=== PATIENT | female | born 1955 | race Two or more races ===

== ENCOUNTER 2017-05-08 13:28 | Emergency (ER) | payer MEDICARE, OTHER ==
[~2017-05-08] VITALS: Ht 154.9 cm; Wt 111.6 kg
[~2017-05-08 13:28] MED LIST: CLIN1CAP4 PO; CLON1TAB3 PO; GABA800T97 PO; HYD2T PO; LEVO-28 PO; PRA1C PO; RISP4TAB53 PO; SENN8.6T15 PO
[2017-05-08 14:18] LABS: Basophils # (auto) 0 uL; Basophils % (auto) 0.5 % (0.0-2.0); CONDITION Y; Eosinophils # (auto) 0.1 uL; Eosinophils % (auto) 0.8 % (0.0-7.0); Hematocrit 44.8 % (36.0-46.0); Hemoglobin 15.1 g/dL (12.2-16.2); Lymphocytes # (auto) 1.6 uL; Lymphocytes % (auto) 20.8 % (10.0-50.0); Mean Corpuscular Hemoglobin 28.5 pg (28.0-32.0); Mean Corpuscular Hgb Conc. 33.7 g/dL (32.0-36.0); Mean Corpuscular Volume 84.6 fL (80.0-100.0); Mean Platelet Volume 7.6 fL (7.4-10.4); Monocytes # (auto) 0.3 uL; Monocytes % (auto) 4.5 % (0.0-12.0); Neutrophils # (auto) 5.7 uL; Neutrophils % (auto) 73.4 % (37.0-80.0); Platelet Count (auto) 272 10^3/uL (140-450); Red Cell Distribution Width 14.4 % (11.6-16.0); White Blood Cell 7.7 10^3/uL (4.4-10.8)
[2017-05-08 14:44] LABS: Albumin 3.7 g/dL (3.4-5.0); Alkaline Phosphatase 95 U/L (45-117); Anion Gap 8 (5-15); Aspartate Aminotransferase 21 U/L (15-37); BUN/Creatinine Ratio 26.7; Bilirubin, Total 0.6 mg/dL (0.2-1.0); Blood Urea Nitrogen 20 mg/dL (7-18); Calcium 8.8 mg/dL (8.5-10.1); Carbon Dioxide 25 mmol/L (21-32); Chloride 103 mmol/L (98-107); GFR African American 101 mL/min; GFR Non-African American 83 mL/min; Glucose 88 mg/dL (74-106); Magnesium 2.3 mg/dL (1.6-2.6); Potassium 3.9 mmol/L (3.5-5.1); Sodium 136 mmol/L (136-145)
[2017-05-08 17:31] VITALS: BP 144/94
== END 2017-05-08 17:11 | disposition home or self-care (01) ==
LOC: ER 13:41
DX: K80.20 Calculus of gallbladder without cholecystitis without obstruction (principal); R53.1 Weakness; E78.5 Hyperlipidemia, unspecified; Z86.711 Personal history of pulmonary embolism; Z88.6 Allergy status to analgesic agent; Z79.899 Other long term (current) drug therapy
CPT/HCPCS: 36415; 70450; 74176; 80053; 83735; 84484; 85025; 93005

== ENCOUNTER 2022-04-15 10:00 | Inpatient (IN) | payer MEDICARE, OTHER ==
[~2022-04-15] VITALS: Ht 165.1 cm; Wt 132.7 kg
[~2022-04-15 10:00] MED LIST changes: -CLIN1CAP4 PO; +CLIN300C8 PO; +CLON-853 PO; -CLON1TAB3 PO; -HYD2T PO; +HYDR2TAB3 PO; +SENN1TAB14 PO; -SENN8.6T15 PO
[2022-04-15] MEDS ORDERED: AZITHROMYCIN 500MG/ 250ML 250 ML IV ONE (10:45)
[2022-04-15] MEDS ORDERED: cefTRIAXone 1GM/50ML D5W 50 ML IV ONE (10:45)
[2022-04-15 11:05] LABS: Eosinophils # (auto) 0 10 ^3/uL (0-0.8); Mean Corpuscular Hemoglobin 26.1 pg (28.0-32.0); Monocytes # (auto) 0.7 10 ^3/uL (0-1.3); Neutrophils # (auto) 8.4 10 ^3/uL (1.6-8.6); White Blood Cell 10.4 10^3/uL (4.4-10.8)
[2022-04-15 11:09] LABS: Basophils # (auto) 0.1 10 ^3/uL (0-0.2); Basophils % (auto) 0.7 % (0.0-2.0); Eosinophils % (auto) 0.2 % (0.0-7.0); Hematocrit 40.7 % (36.0-46.0); Hemoglobin 13.1 g/dL (12.2-16.2); Lymphocytes # (auto) 1.3 10 ^3/uL (0.4-5.4); Lymphocytes % (auto) 12.1 % (10.0-50.0); Mean Corpuscular Hgb Conc. 32.1 g/dL (32.0-36.0); Mean Corpuscular Volume 81.2 fL (80.0-100.0); Monocytes % (auto) 6.7 % (0.0-12.0); Neutrophils % (auto) 80.3 % (37.0-80.0); Red Blood Cells 5.01 10^6/uL (4.0-5.20); Red Cell Distribution Width 17.1 % (11.8-14.3)
[2022-04-15 11:31] LABS: Albumin 3.2 g/dL (3.4-5.0); Calcium 8.4 mg/dL (8.5-10.1); Potassium 4.2 mmol/L (3.5-5.1)
[2022-04-15 11:34] LABS: BUN/Creatinine Ratio 15.2; Bilirubin, Total 0.7 mg/dL (0.2-1.0); Total Protein 6.8 g/dL (6.4-8.2)
[2022-04-15 16:00] LABS: Urine Bacteria NONE SEEN /hpf (None Seen); Urine Blood Negative /uL (Negative); Urine Hyaline Cast MANY /lpf (0 - 2); Urine Specific Gravity 1.023 (1.001-1.035); Urine WBC 1 /hpf (0 - 5)
[2022-04-15] MEDS ORDERED: IPRATROPIUM BROM 0.5 MG/2.5ML INH SOL NEB PRN (17:30)
[2022-04-15] MEDS ORDERED: VANCOMYCIN PER PHARMACY 0 MG IV SCH (17:30)
[2022-04-15] MEDS ORDERED: ALBUTEROL SULF 2.5 MG/0.5ML(0.5%) NEB SOLN NEB PRN (17:30)
[2022-04-15] MEDS ORDERED: NITROGLYCERIN 0.4 MG SL TAB SL PRN (17:45)
[2022-04-15] MEDS ORDERED: MORPHINE SULFATE INJ 2 MG/ml SYRG IV PRN (17:45)
[2022-04-15] MEDS ORDERED: SODIUM CHLORIDE 0.9% 1,000 ML IV ONE (17:45)
[2022-04-15] MEDS: IPRATROPIUM BROM 0.5 MG/2.5ML INH SOL NEB SCH (17:51)
[2022-04-15] MEDS: ALBUTEROL SULF 2.5 MG/0.5ML(0.5%) NEB SOLN NEB SCH (17:51)
[2022-04-15] MEDS ORDERED: VANCOMYCIN 1GM/250ML 250 ML IV ONE (18:00)
[2022-04-15] MEDS ORDERED: CLON0.5T10 PO (18:10)
[2022-04-15 19:01] LABS: Cholesterol 167 mg/dL (< 200); HDL Cholesterol 45 mg/dL (40-59); LDL Cholesterol 114 mg/dL (< 100); Triglycerides 107 mg/dL (< 150)
[2022-04-15] MEDS ORDERED: clonazePAM 0.5 MG TAB PO SCH (22:00)
[2022-04-15] MEDS ORDERED: LISI-716 PO (22:02)
[2022-04-15] MEDS ORDERED: CYCL-611 PO (22:02)
[2022-04-15] MEDS ORDERED: MELO1TAB56 PO (22:02)
[2022-04-15] MEDS ORDERED: FURO40TA4 PO (22:02)
[2022-04-15] MEDS ORDERED: ROSU1TAB13 PO (22:02)
[2022-04-15] MEDS ORDERED: HYDR25TA5 PO (22:03)
[2022-04-15 22:13] VITALS: BP 101/53
[2022-04-15] MEDS: GABAPENTIN 400 MG CAP PO SCH (22:26)
[2022-04-15] MEDS: clonazePAM 0.5 MG TAB PO SCH (22:27)
[2022-04-16 03:52] VITALS: BP 101/53
[2022-04-16 04:57] LABS: Eosinophils # (auto) 0.1 10 ^3/uL (0-0.8); Lymphocytes # (auto) 1.3 10 ^3/uL (0.4-5.4); Monocytes # (auto) 0.6 10 ^3/uL (0-1.3)
[2022-04-16 05:00] VITALS: BP 106/55
[2022-04-16 05:00] LABS: Basophils # (auto) 0 10 ^3/uL (0-0.2); Basophils % (auto) 0.6 % (0.0-2.0); Eosinophils % (auto) 1.7 % (0.0-7.0); Hematocrit 38.7 % (36.0-46.0); Hemoglobin 12.9 g/dL (12.2-16.2); Lymphocytes % (auto) 19.2 % (10.0-50.0); Mean Corpuscular Hemoglobin 27.1 pg (28.0-32.0); Mean Corpuscular Hgb Conc. 33.4 g/dL (32.0-36.0); Mean Corpuscular Volume 81.3 fL (80.0-100.0); Monocytes % (auto) 8.4 % (0.0-12.0); Neutrophils # (auto) 4.7 10 ^3/uL (1.6-8.6); Neutrophils % (auto) 70.1 % (37.0-80.0); Nucleated Red Blood Cells % 0.1 %; Red Blood Cells 4.76 10^6/uL (4.0-5.20); White Blood Cell 6.7 10^3/uL (4.4-10.8)
[2022-04-16 05:59] LABS: Albumin 2.9 g/dL (3.4-5.0); Calcium 8.2 mg/dL (8.5-10.1)
[2022-04-16 06:01] LABS: BUN/Creatinine Ratio 24.6
[2022-04-16 06:04] LABS: Bilirubin, Total 0.7 mg/dL (0.2-1.0); Total Protein 6.2 g/dL (6.4-8.2)
[2022-04-16] MEDS: IPRATROPIUM BROM 0.5 MG/2.5ML INH SOL NEB SCH ×3 (06:33→18:43)
[2022-04-16] MEDS: ALBUTEROL SULF 2.5 MG/0.5ML(0.5%) NEB SOLN NEB SCH ×3 (06:33→18:43)
[2022-04-16] MEDS: GABAPENTIN 400 MG CAP PO SCH ×2 (09:14→20:58)
[2022-04-16] MEDS: ENOXAPARIN SOD 40 MG/0.4 ML SYRINGE SC SCH (09:15)
[2022-04-16] MEDS: clonazePAM 0.5 MG TAB PO SCH ×2 (09:15→20:57)
[2022-04-16] MEDS ORDERED: risperiDONE 1 MG TAB PO SCH (10:00)
[2022-04-16] MEDS ORDERED: VANCOMYCIN 1GM/250ML 250 ML IV SCH (10:00)
[2022-04-16 10:18] VITALS: BP 115/73
[2022-04-16 15:17] VITALS: BP 128/65
[2022-04-16] MEDS: traMADol HCL 50 MG TAB PO PRN ×2 (15:25→20:58)
[2022-04-16 18:10] VITALS: BP 104/42
[2022-04-16] MEDS: ATORVASTATIN 20 MG TAB PO SCH (20:58)
[2022-04-16 22:00] VITALS: BP 127/62
[2022-04-17] MEDS: traMADol HCL 50 MG TAB PO PRN ×2 (02:58→10:54)
[2022-04-17 05:00] VITALS: BP 131/75
[2022-04-17 05:41] LABS: Basophils # (auto) 0 10 ^3/uL (0-0.2); Eosinophils # (auto) 0.1 10 ^3/uL (0-0.8); Lymphocytes # (auto) 1.1 10 ^3/uL (0.4-5.4); Neutrophils # (auto) 4.2 10 ^3/uL (1.6-8.6); White Blood Cell 5.9 10^3/uL (4.4-10.8)
[2022-04-17 05:48] LABS: Basophils % (auto) 0.6 % (0.0-2.0); Eosinophils % (auto) 1.6 % (0.0-7.0); Hematocrit 42.1 % (36.0-46.0); Hemoglobin 13.6 g/dL (12.2-16.2); Lymphocytes % (auto) 18.5 % (10.0-50.0); Mean Corpuscular Hemoglobin 26.2 pg (28.0-32.0); Mean Corpuscular Hgb Conc. 32.3 g/dL (32.0-36.0); Mean Corpuscular Volume 81.2 fL (80.0-100.0); Monocytes # (auto) 0.5 10 ^3/uL (0-1.3); Monocytes % (auto) 8.2 % (0.0-12.0); Neutrophils % (auto) 71.1 % (37.0-80.0); Nucleated Red Blood Cells % 0.1 %; Red Blood Cells 5.18 10^6/uL (4.0-5.20)
[2022-04-17 06:30] LABS: BUN/Creatinine Ratio 22.7; Calcium 9.2 mg/dL (8.5-10.1); Phosphorus 2.5 mg/dL (2.5-4.90); Potassium 3.8 mmol/L (3.5-5.1)
[2022-04-17 06:33] LABS: Uric Acid 6.5 mg/dL (2.6-6.0)
[2022-04-17] MEDS: ALBUTEROL SULF 2.5 MG/0.5ML(0.5%) NEB SOLN NEB SCH ×3 (07:30→18:50)
[2022-04-17] MEDS: IPRATROPIUM BROM 0.5 MG/2.5ML INH SOL NEB SCH ×3 (07:30→18:50)
[2022-04-17] MEDS: GABAPENTIN 400 MG CAP PO SCH ×2 (08:33→21:05)
[2022-04-17 09:00] VITALS: BP 121/65
[2022-04-17] MEDS: clonazePAM 0.5 MG TAB PO SCH ×2 (09:25→21:04)
[2022-04-17] MEDS: ENOXAPARIN SOD 40 MG/0.4 ML SYRINGE SC SCH (09:25)
[2022-04-17 13:00] VITALS: BP 138/77
[2022-04-17] MEDS: MORPHINE SULFATE INJ 2 MG/ml SYRG IV PRN ×2 (16:54→21:43)
[2022-04-17 17:03] VITALS: BP 118/68
[2022-04-17] MEDS: ATORVASTATIN 20 MG TAB PO SCH (21:05)
[2022-04-17 22:00] VITALS: BP 113/55
[2022-04-18] MEDS: MORPHINE SULFATE INJ 2 MG/ml SYRG IV PRN ×3 (02:15→13:35)
[2022-04-18 05:00] VITALS: BP 138/74
[2022-04-18] MEDS: ALBUTEROL SULF 2.5 MG/0.5ML(0.5%) NEB SOLN NEB SCH ×2 (06:14→12:00)
[2022-04-18] MEDS: IPRATROPIUM BROM 0.5 MG/2.5ML INH SOL NEB SCH ×2 (06:14→12:00)
[2022-04-18] MEDS: clonazePAM 0.5 MG TAB PO SCH (08:47)
[2022-04-18] MEDS: GABAPENTIN 400 MG CAP PO SCH (08:47)
[2022-04-18] MEDS: ENOXAPARIN SOD 40 MG/0.4 ML SYRINGE SC SCH (08:47)
[2022-04-18 08:57] VITALS: BP 120/65
[2022-04-18 11:09] VITALS: BP 120/65
[2022-04-18 13:00] VITALS: BP 109/60
[2022-04-18 14:05] VITALS: BP 109/60
== END 2022-04-18 15:08 | disposition home or self-care (01) | DRG 291 ==
LOC: EDUNIT# 10:00 → EDBD 10:00 → ER 10:06 → TELE 17:41 → TELE-CENTR 20:41
PROVIDERS: ADMIT Registered Nurse; ATTEND Internal Medicine
DX: I13.0 Hypertensive heart and chronic kidney disease with heart failure and stage 1 through stage 4 chronic kidney disease, or unspecified chronic kidney disease (principal); I50.31 Acute diastolic (congestive) heart failure; J96.01 Acute respiratory failure with hypoxia; N17.0 Acute kidney failure with tubular necrosis; L03.115 Cellulitis of right lower limb; J44.0 Chronic obstructive pulmonary disease with (acute) lower respiratory infection; E46 Unspecified protein-calorie malnutrition; J98.11 Atelectasis; Z68.42 Body mass index [BMI] 45.0-49.9, adult; J44.1 Chronic obstructive pulmonary disease with (acute) exacerbation; L03.116 Cellulitis of left lower limb; I95.9 Hypotension, unspecified; M54.9 Dorsalgia, unspecified; G62.9 Polyneuropathy, unspecified; Z20.822 Contact with and (suspected) exposure to COVID-19; E66.01 Morbid (severe) obesity due to excess calories; E78.5 Hyperlipidemia, unspecified; G89.4 Chronic pain syndrome; G47.33 Obstructive sleep apnea (adult) (pediatric); F11.10 Opioid abuse, uncomplicated; N18.32 Chronic kidney disease, stage 3b; Z88.1 Allergy status to other antibiotic agents; Z88.5 Allergy status to narcotic agent; Z82.49 Family history of ischemic heart disease and other diseases of the circulatory system; Z79.899 Other long term (current) drug therapy; Z83.3 Family history of diabetes mellitus; Z86.711 Personal history of pulmonary embolism
CPT/HCPCS: 36415; 36600; 71045; 78582; 80048; 80053; 80061; 80202; 81001; 82805; 83036; 83605; 83880; 84100; 84443; 84484; 84550; 85025; 85379; 87040; 93005; 93306; 93970; 94640; 96365; 96367; 96372; 97163; 99291; G0378; J0696

== ENCOUNTER 2023-01-13 10:20 | Inpatient (IN) | payer MEDICARE, OTHER ==
[~2023-01-13] VITALS: Ht 304.8 cm; Wt 127.7 kg
[~2023-01-13 10:20] MED LIST changes: -CLON-853 PO; +CLON0.5T10 PO; +CYCL-611 PO; +FURO40TA4 PO; +HYDR25TA5 PO; +LISI-716 PO; +MELO1TAB56 PO; -RISP4TAB53 PO; +ROSU1TAB13 PO
[2023-01-13 10:49] LABS: Basophils # (auto) 0.1 10 ^3/uL (0-0.2); Basophils % (auto) 0.7 % (0.0-2.0); Lymphocytes # (auto) 1.2 10 ^3/uL (0.4-5.4); Mean Corpuscular Volume 81.4 fL (80.0-100.0); Monocytes # (auto) 0.5 10 ^3/uL (0-1.3)
[2023-01-13 10:51] LABS: Eosinophils # (auto) 0.1 10 ^3/uL (0-0.8); Eosinophils % (auto) 0.8 % (0.0-7.0); Hematocrit 47.1 % (36.0-46.0); Hemoglobin 15.2 g/dL (12.2-16.2); Lymphocytes % (auto) 15.1 % (10.0-50.0); Mean Corpuscular Hemoglobin 26.2 pg (28.0-32.0); Mean Corpuscular Hgb Conc. 32.2 g/dL (32.0-36.0); Monocytes % (auto) 6.5 % (0.0-12.0); Neutrophils # (auto) 5.9 10 ^3/uL (1.6-8.6); Neutrophils % (auto) 76.9 % (37.0-80.0); Nucleated Red Blood Cells % 0.2 %; Red Blood Cells 5.79 10^6/uL (4.0-5.20); Red Cell Distribution Width 16.2 % (11.8-14.3); White Blood Cell 7.7 10^3/uL (4.4-10.8)
[2023-01-13 11:22] LABS: Alanine Aminotransferase 36 U/L (13-56); Albumin 3.4 g/dL (3.4-5.0); Alkaline Phosphatase 117 U/L (45-117); Anion Gap 9 (5-15); Aspartate Aminotransferase 81 U/L (15-37); BUN/Creatinine Ratio 25.8 (10.0-20.0); Bilirubin, Total 0.7 mg/dL (0.2-1.0); Blood Urea Nitrogen 23 mg/dL (7-18); Calcium 8.5 mg/dL (8.5-10.1); Carbon Dioxide 18 mmol/L (21-32); Chloride 107 mmol/L (98-107); GFR African American 81 mL/min; GFR Non-African American 67 mL/min; Glucose 117 mg/dL (74-106); Potassium 4.5 mmol/L (3.5-5.1); Sodium 134 mmol/L (136-145); Total Protein 6.9 g/dL (6.4-8.2)
[2023-01-13 12:50] LABS: INR 0.97 (0.9-1.15); Partial Thromboplastin Time 28.7 sec (24.6-33.4)
[2023-01-13] MEDS ORDERED: ENOXAPARIN SOD 40 MG/0.4 ML SYRINGE SC SCH (17:45)
[2023-01-13] MEDS ORDERED: MORPHINE SULFATE INJ 2 MG/ml SYRG IV PRN (17:45)
[2023-01-13] MEDS ORDERED: NITROGLYCERIN 0.4 MG SL TAB SL PRN (17:45)
[2023-01-13] MEDS ORDERED: ACETAMINOPHEN 325 MG TAB PO PRN (17:45)
[2023-01-13] MEDS ORDERED: FUROSEMIDE 20 MG/2 ML VIAL IV ONE (18:00)
[2023-01-13] MEDS ORDERED: PANTOPRAZOLE 40 MG TAB PO ONE (18:15)
[2023-01-13] MEDS ORDERED: IOHEXOL 350 MG/ML 100ML IJ ONE (19:58)
[2023-01-13] MEDS: SENNA 8.6 MG TAB PO SCH (22:00)
[2023-01-13] MEDS: HYDROcodone-ACET 5/325MG TAB PO PRN (23:55)
[2023-01-13] MEDS: ENOXAPARIN SOD 40 MG/0.4 ML SYRINGE SC SCH (23:55)
[2023-01-13] MEDS: ATORVASTATIN 20 MG TAB PO SCH (23:55)
[2023-01-13] MEDS: GABAPENTIN 400 MG CAP PO SCH (23:56)
[2023-01-14] VITALS (25 sets, daily range): BP systolic 78–147; BP diastolic 41–80
[2023-01-14] MEDS: PRAZOSIN HCL 1 MG CAP PO SCH ×2 (00:07→21:43)
[2023-01-14 04:13] LABS: Red Cell Distribution Width 16.6 % (11.8-14.3)
[2023-01-14 04:17] LABS: Basophils # (auto) 0 10 ^3/uL (0-0.2); Basophils % (auto) 0.4 % (0.0-2.0); Eosinophils # (auto) 0 10 ^3/uL (0-0.8); Eosinophils % (auto) 0.5 % (0.0-7.0); Hematocrit 44.2 % (36.0-46.0); Hemoglobin 14.6 g/dL (12.2-16.2); Lymphocytes # (auto) 1.9 10 ^3/uL (0.4-5.4); Lymphocytes % (auto) 23.1 % (10.0-50.0); Mean Corpuscular Hemoglobin 26.4 pg (28.0-32.0); Mean Corpuscular Hgb Conc. 33.1 g/dL (32.0-36.0); Monocytes # (auto) 0.7 10 ^3/uL (0-1.3); Monocytes % (auto) 8.4 % (0.0-12.0); Neutrophils # (auto) 5.4 10 ^3/uL (1.6-8.6); Neutrophils % (auto) 67.6 % (37.0-80.0); Nucleated Red Blood Cells % 0.1 %; Red Blood Cells 5.53 10^6/uL (4.0-5.20)
[2023-01-14 04:26] LABS: Albumin 3.4 g/dL (3.4-5.0); Calcium 9.1 mg/dL (8.5-10.1); Potassium 3.7 mmol/L (3.5-5.1)
[2023-01-14] MEDS ORDERED: SODIUM CHLORIDE 0.9% 500 ML IV ONE (04:30)
[2023-01-14 04:32] LABS: BUN/Creatinine Ratio 21.2 (10.0-20.0); Bilirubin, Total 0.8 mg/dL (0.2-1.0); Total Protein 7.2 g/dL (6.4-8.2)
[2023-01-14] MEDS ORDERED: MIDODRINE HCL 10 MG TAB PO ONE (05:00)
[2023-01-14] MEDS ORDERED: NOREPINEPHRINE 8 MG/250ML KIT 250 ML IV ONE (05:00)
[2023-01-14] MEDS: NOREPINEPHRINE 8 MG/250ML KIT 250 ML IV SCH (05:10)
[2023-01-14] MEDS: HYDROcodone-ACET 5/325MG TAB PO PRN (09:12)
[2023-01-14] MEDS: GABAPENTIN 400 MG CAP PO SCH ×3 (09:12→21:43)
[2023-01-14] MEDS ORDERED: ASPirin 81 mg TAB PO SCH (10:00)
[2023-01-14] MEDS: SENNA 8.6 MG TAB PO SCH ×2 (10:00→21:42)
[2023-01-14] MEDS: FUROSEMIDE 20 MG/2 ML VIAL IV SCH (10:00)
[2023-01-14] MEDS: LISINOPRIL 10 MG TAB PO SCH (10:00)
[2023-01-14] MEDS: PANTOPRAZOLE 40 MG TAB PO SCH (11:11)
[2023-01-14] MEDS: ENOXAPARIN SOD 40 MG/0.4 ML SYRINGE SC SCH ×2 (11:11→21:42)
[2023-01-14 11:18] LABS: Urine Bacteria NONE SEEN /hpf (None Seen); Urine Blood Negative /uL (Negative); Urine Specific Gravity 1.033 (1.001-1.035); Urine WBC 2 /hpf (0 - 5)
[2023-01-14] MEDS: ATORVASTATIN 20 MG TAB PO SCH (21:42)
[2023-01-15] VITALS (30 sets, daily range): BP systolic 95–163; BP diastolic 54–69
[2023-01-15] MEDS: NOREPINEPHRINE 8 MG/250ML KIT 250 ML IV SCH (02:03)
[2023-01-15] MEDS: GABAPENTIN 400 MG CAP PO SCH ×3 (05:52→23:56)
[2023-01-15] MEDS: IPRATROPIUM BROM 0.5 MG/2.5ML INH SOL NEB PRN ×3 (07:04→22:58)
[2023-01-15] MEDS: ALBUTEROL SULF 2.5 MG/0.5ML(0.5%) NEB SOLN NEB PRN ×3 (07:04→22:58)
[2023-01-15] MEDS: SENNA 8.6 MG TAB PO SCH ×2 (09:38→21:43)
[2023-01-15] MEDS: LISINOPRIL 10 MG TAB PO SCH (09:38)
[2023-01-15] MEDS: PANTOPRAZOLE 40 MG TAB PO SCH (09:38)
[2023-01-15] MEDS: FUROSEMIDE 20 MG/2 ML VIAL IV SCH ×2 (09:38→18:00)
[2023-01-15] MEDS: ENOXAPARIN SOD 40 MG/0.4 ML SYRINGE SC SCH ×2 (09:38→21:42)
[2023-01-15] MEDS: HYDROcodone-ACET 5/325MG TAB PO PRN (14:11)
[2023-01-15] MEDS: ATORVASTATIN 20 MG TAB PO SCH (21:42)
[2023-01-16] VITALS (7 sets, daily range): BP systolic 93–120; BP diastolic 50–77
[2023-01-16] MEDS: FUROSEMIDE 20 MG/2 ML VIAL IV SCH (06:00)
[2023-01-16] MEDS: GABAPENTIN 400 MG CAP PO SCH ×3 (06:22→21:17)
[2023-01-16] MEDS: PANTOPRAZOLE 40 MG TAB PO SCH (09:54)
[2023-01-16] MEDS: SENNA 8.6 MG TAB PO SCH ×2 (09:55→21:20)
[2023-01-16] MEDS: ENOXAPARIN SOD 40 MG/0.4 ML SYRINGE SC SCH ×2 (09:55→21:17)
[2023-01-16] MEDS: LISINOPRIL 10 MG TAB PO SCH (12:00)
[2023-01-16] MEDS ORDERED: REGADENOSON 0.4 MG/5 ML SYRG IV ONE ×2 (13:44→13:45)
[2023-01-16] MEDS: HYDROcodone-ACET 5/325MG TAB PO PRN (18:18)
[2023-01-16] MEDS: ALBUTEROL SULF 2.5 MG/0.5ML(0.5%) NEB SOLN NEB PRN (20:31)
[2023-01-16] MEDS: IPRATROPIUM BROM 0.5 MG/2.5ML INH SOL NEB PRN (20:31)
[2023-01-16] MEDS: ATORVASTATIN 20 MG TAB PO SCH (21:17)
[2023-01-17] MEDS: HYDROcodone-ACET 5/325MG TAB PO PRN ×2 (01:32→09:49)
[2023-01-17 05:00] VITALS: BP 96/72
[2023-01-17] MEDS: GABAPENTIN 400 MG CAP PO SCH ×3 (05:27→21:36)
[2023-01-17 09:00] VITALS: BP 135/77
[2023-01-17] MEDS: ENOXAPARIN SOD 40 MG/0.4 ML SYRINGE SC SCH ×2 (09:48→21:36)
[2023-01-17] MEDS: PANTOPRAZOLE 40 MG TAB PO SCH (09:48)
[2023-01-17] MEDS: SENNA 8.6 MG TAB PO SCH ×2 (09:49→21:37)
[2023-01-17] MEDS: FUROSEMIDE 20 MG/2 ML VIAL IV SCH ×2 (11:17→18:27)
[2023-01-17 12:00] VITALS: BP 121/77
[2023-01-17 17:00] VITALS: BP 119/65
[2023-01-17] MEDS: IPRATROPIUM BROM 0.5 MG/2.5ML INH SOL NEB PRN (18:42)
[2023-01-17] MEDS: ALBUTEROL SULF 2.5 MG/0.5ML(0.5%) NEB SOLN NEB PRN (18:42)
[2023-01-17] MEDS: PRAZOSIN HCL 1 MG CAP PO SCH ×2 (21:20→22:00)
[2023-01-17] MEDS: ATORVASTATIN 20 MG TAB PO SCH (21:36)
[2023-01-17 22:00] VITALS: BP 116/66
[2023-01-18 05:00] VITALS: BP 113/69
[2023-01-18] MEDS: FUROSEMIDE 20 MG/2 ML VIAL IV SCH ×2 (05:51→19:48)
[2023-01-18] MEDS: GABAPENTIN 400 MG CAP PO SCH ×3 (05:52→21:59)
[2023-01-18 09:00] VITALS: BP 114/68
[2023-01-18] MEDS: PANTOPRAZOLE 40 MG TAB PO SCH (09:13)
[2023-01-18] MEDS: SENNA 8.6 MG TAB PO SCH ×2 (09:13→21:59)
[2023-01-18] MEDS: ENOXAPARIN SOD 40 MG/0.4 ML SYRINGE SC SCH ×2 (09:14→22:00)
[2023-01-18 13:00] VITALS: BP 119/75
[2023-01-18 17:00] VITALS: BP 135/64
[2023-01-18] MEDS: ATORVASTATIN 20 MG TAB PO SCH (21:59)
[2023-01-18 22:00] VITALS: BP 120/75
[2023-01-18] MEDS: PRAZOSIN HCL 1 MG CAP PO SCH (22:00)
[2023-01-18] MEDS: ALBUTEROL SULF 2.5 MG/0.5ML(0.5%) NEB SOLN NEB PRN (22:56)
[2023-01-18] MEDS: IPRATROPIUM BROM 0.5 MG/2.5ML INH SOL NEB PRN (22:56)
[2023-01-19 05:00] VITALS: BP 101/59
[2023-01-19] MEDS: FUROSEMIDE 20 MG/2 ML VIAL IV SCH ×2 (06:00→17:47)
[2023-01-19] MEDS: GABAPENTIN 400 MG CAP PO SCH ×3 (06:19→21:17)
[2023-01-19 08:43] VITALS: BP 112/65
[2023-01-19] MEDS: PANTOPRAZOLE 40 MG TAB PO SCH (08:58)
[2023-01-19] MEDS: SENNA 8.6 MG TAB PO SCH ×2 (08:58→21:17)
[2023-01-19] MEDS: ENOXAPARIN SOD 40 MG/0.4 ML SYRINGE SC SCH ×2 (08:59→21:18)
[2023-01-19] MEDS: MORPHINE SULFATE INJ 2 MG/ml SYRG IV PRN ×3 (08:59→23:08)
[2023-01-19 13:00] VITALS: BP 120/71
[2023-01-19 16:44] VITALS: BP 125/69
[2023-01-19] MEDS: ALBUTEROL SULF 2.5 MG/0.5ML(0.5%) NEB SOLN NEB PRN (20:38)
[2023-01-19] MEDS: IPRATROPIUM BROM 0.5 MG/2.5ML INH SOL NEB PRN (20:38)
[2023-01-19] MEDS: ATORVASTATIN 20 MG TAB PO SCH (21:17)
[2023-01-19] MEDS: PRAZOSIN HCL 1 MG CAP PO SCH (21:20)
[2023-01-19 22:00] VITALS: BP 113/74
[2023-01-19 22:36] VITALS: BP 113/74
[2023-01-20] MEDS: MORPHINE SULFATE INJ 2 MG/ml SYRG IV PRN (04:27)
[2023-01-20 05:00] VITALS: BP 100/62
[2023-01-20 05:56] LABS: Basophils # (auto) 0.1 10 ^3/uL (0-0.2); Eosinophils # (auto) 0.1 10 ^3/uL (0-0.8); Lymphocytes # (auto) 1.9 10 ^3/uL (0.4-5.4); Lymphocytes % (auto) 24.6 % (10.0-50.0); Monocytes # (auto) 0.6 10 ^3/uL (0-1.3); Nucleated Red Blood Cells % 0.1 %; Red Cell Distribution Width 16.3 % (11.8-14.3)
[2023-01-20 05:59] LABS: Basophils % (auto) 0.7 % (0.0-2.0); Eosinophils % (auto) 1.6 % (0.0-7.0); Hematocrit 42.8 % (36.0-46.0); Hemoglobin 14.3 g/dL (12.2-16.2); Mean Corpuscular Hemoglobin 26.7 pg (28.0-32.0); Mean Corpuscular Hgb Conc. 33.4 g/dL (32.0-36.0); Mean Corpuscular Volume 79.9 fL (80.0-100.0); Monocytes % (auto) 8.2 % (0.0-12.0); Neutrophils % (auto) 64.9 % (37.0-80.0); Red Blood Cells 5.36 10^6/uL (4.0-5.20); White Blood Cell 7.7 10^3/uL (4.4-10.8)
[2023-01-20 06:05] LABS: Potassium 3.6 mmol/L (3.5-5.1)
[2023-01-20 06:11] LABS: Albumin 3.4 g/dL (3.4-5.0); BUN/Creatinine Ratio 18.1 (10.0-20.0); Bilirubin, Total 0.6 mg/dL (0.2-1.0); Calcium 8.9 mg/dL (8.5-10.1)
[2023-01-20] MEDS: GABAPENTIN 400 MG CAP PO SCH ×2 (06:34→15:41)
[2023-01-20] MEDS: FUROSEMIDE 20 MG/2 ML VIAL IV SCH (06:36)
[2023-01-20 08:50] VITALS: BP 124/74
[2023-01-20] MEDS: SENNA 8.6 MG TAB PO SCH (10:52)
[2023-01-20] MEDS: ENOXAPARIN SOD 40 MG/0.4 ML SYRINGE SC SCH (10:52)
[2023-01-20 14:37] VITALS: BP 119/73
[2023-01-20 17:05] VITALS: BP 133/93
== END 2023-01-20 17:15 | disposition home health service (06) | DRG 291 ==
LOC: ER 10:20 → TELE 17:47 → TELE-WESTW 01-15 21:33
PROVIDERS: ADMIT Nurse Practitioner Family; ATTEND Family Medicine
PROC: 5A09357 Assistance with Respiratory Ventilation, Less than 24 Consecutive Hours, Continuous Positive Airway Pressure (ICD-10-PCS; principal; 2023-01-14)
PROC: 05H933Z Insertion of Infusion Device into Right Brachial Vein, Percutaneous Approach (ICD-10-PCS; 2023-01-14)
PROC: B54MZZA Ultrasonography of Right Upper Extremity Veins, Guidance (ICD-10-PCS; 2023-01-14)
PROC: 5A09357 Assistance with Respiratory Ventilation, Less than 24 Consecutive Hours, Continuous Positive Airway Pressure (ICD-10-PCS; 2023-01-15)
PROC: 5A09357 Assistance with Respiratory Ventilation, Less than 24 Consecutive Hours, Continuous Positive Airway Pressure (ICD-10-PCS; 2023-01-18)
DX: I11.0 Hypertensive heart disease with heart failure (principal); I50.33 Acute on chronic diastolic (congestive) heart failure; J44.1 Chronic obstructive pulmonary disease with (acute) exacerbation; J96.11 Chronic respiratory failure with hypoxia; Z68.42 Body mass index [BMI] 45.0-49.9, adult; G47.30 Sleep apnea, unspecified; G89.29 Other chronic pain; Z20.822 Contact with and (suspected) exposure to COVID-19; E78.00 Pure hypercholesterolemia, unspecified; Z96.653 Presence of artificial knee joint, bilateral; Z60.8 Other problems related to social environment; I95.9 Hypotension, unspecified; G56.01 Carpal tunnel syndrome, right upper limb; R29.6 Repeated falls; E66.01 Morbid (severe) obesity due to excess calories; Z99.81 Dependence on supplemental oxygen; Z91.048 Other nonmedicinal substance allergy status; Z88.5 Allergy status to narcotic agent; Z86.711 Personal history of pulmonary embolism; I25.2 Old myocardial infarction; Z82.49 Family history of ischemic heart disease and other diseases of the circulatory system; Z83.3 Family history of diabetes mellitus
CPT/HCPCS: 36415; 71045; 71275; 78452; 80053; 80061; 81001; 83036; 83880; 84484; 85025; 85379; 85610; 85730; 87426; 93005; 93017; 93306; 93970; 94640; 94660; 96360; 97110; 97116; 97163; 97530; G0378

== ENCOUNTER 2023-01-21 08:52 | Inpatient (IN) | payer MEDICARE, OTHER ==
[~2023-01-21] VITALS: Ht 152.4 cm; Wt 133.4 kg
[~2023-01-21 08:52] MED LIST changes: +CLIN300C70 PO; -CLIN300C8 PO; -CLON0.5T10 PO; +CLON0.5T4 PO; -LEVO-28 PO; +LEVO500T91 PO; -LISI-716 PO; +LISI10TA34 PO; +MELO-335 PO; -MELO1TAB56 PO; +ROSU10TA64 PO; -ROSU1TAB13 PO
[2023-01-21] MEDS ORDERED: SODIUM CHLORIDE 0.9% 1,000 ML IV ONE (09:15)
[2023-01-21 10:31] LABS: Eosinophils # (auto) 0 10 ^3/uL (0-0.8); Mean Corpuscular Hemoglobin 26.6 pg (28.0-32.0); Monocytes # (auto) 0.5 10 ^3/uL (0-1.3); White Blood Cell 18.2 10^3/uL (4.4-10.8)
[2023-01-21 10:32] LABS: Basophils # (auto) 0.1 10 ^3/uL (0-0.2); Basophils % (auto) 0.3 % (0.0-2.0); Hematocrit 47.7 % (36.0-46.0); Hemoglobin 15.8 g/dL (12.2-16.2); Lymphocytes # (auto) 0.7 10 ^3/uL (0.4-5.4); Lymphocytes % (auto) 3.8 % (10.0-50.0); Mean Corpuscular Hgb Conc. 33.1 g/dL (32.0-36.0); Mean Corpuscular Volume 80.5 fL (80.0-100.0); Monocytes % (auto) 2.5 % (0.0-12.0); Neutrophils % (auto) 93.4 % (37.0-80.0); Nucleated Red Blood Cells % 0.3 %; Red Blood Cells 5.92 10^6/uL (4.0-5.20); Red Cell Distribution Width 16.5 % (11.8-14.3)
[2023-01-21 10:44] LABS: INR 0.98 (0.9-1.15); Partial Thromboplastin Time 27.3 sec (24.6-33.4)
[2023-01-21] MEDS ORDERED: cefTRIAXone 1GM/50ML D5W 50 ML IV ONE (11:45)
[2023-01-21] MEDS ORDERED: SODIUM CHLORIDE 0.9% 3,800 ML IV ONE (11:45)
[2023-01-21] MEDS ORDERED: VANCOMYCIN 1GM/250ML 250 ML IV ONE (11:45)
[2023-01-21 12:11] LABS: Lactic Acid w/Reflex 2.8 mmol/L (0.4-2.0)
[2023-01-21 12:30] LABS: Albumin 3.7 g/dL (3.4-5.0); Calcium 8.5 mg/dL (8.5-10.1); Magnesium 2.3 mg/dL (1.6-2.6); Potassium 4.5 mmol/L (3.5-5.1)
[2023-01-21 12:32] LABS: Urine Bacteria FEW /hpf (None Seen); Urine Blood TRACE /uL (Negative); Urine Hyaline Cast FEW /lpf (0 - 2); Urine Mucus FEW (None Seen); Urine WBC 10 /hpf (0 - 5)
[2023-01-21 12:33] LABS: BUN/Creatinine Ratio 12.8 (10.0-20.0); Bilirubin, Total 0.6 mg/dL (0.2-1.0); Total Protein 8.1 g/dL (6.4-8.2)
[2023-01-21] MEDS ORDERED: ONDANSETRON HCL 4 MG/2 ML VIAL IV PRN (14:30)
[2023-01-21] MEDS ORDERED: DEXTROSE (50%) 50ML SYRG IV PRN (14:30)
[2023-01-21] MEDS ORDERED: DOCUSATE SOD 100 MG CAP PO PRN (14:30)
[2023-01-21] MEDS: IPRATROPIUM BROM 0.5 MG/2.5ML INH SOL NEB PRN ×2 (16:10→22:29)
[2023-01-21] MEDS: ALBUTEROL SULF 2.5 MG/0.5ML(0.5%) NEB SOLN NEB PRN ×2 (16:10→22:29)
[2023-01-21 16:32] VITALS: BP 95/50
[2023-01-21] MEDS: InsuLIN REG 1unit/0.01ml Soln (100units/ml) SC SCH ×2 (17:00→22:00)
[2023-01-21] MEDS: ACCU-CHEK COMFORT CURVE STRIP VI SCH ×2 (17:00→22:00)
[2023-01-21 17:09] LABS: Creatinine, Urine 180 mg/dL (30.0-125.0); Sodium Urine < 5 mmol/L (40-220)
[2023-01-21] MEDS: MORPHINE SULFATE INJ 2 MG/ml SYRG IV PRN (20:09)
[2023-01-21] MEDS: NOREPINEPHRINE 8 MG/250ML KIT 250 ML IV SCH (22:17)
[2023-01-22] VITALS (60 sets, daily range): BP systolic 99–146; BP diastolic 40–77
[2023-01-22] MEDS: ATORVASTATIN 20 MG TAB PO SCH ×2 (00:37→21:29)
[2023-01-22] MEDS: MORPHINE SULFATE INJ 2 MG/ml SYRG IV PRN ×5 (01:04→21:29)
[2023-01-22 05:01] LABS: Basophils # (auto) 0 10 ^3/uL (0-0.2); Eosinophils # (auto) 0.1 10 ^3/uL (0-0.8); Mean Corpuscular Hemoglobin 26.8 pg (28.0-32.0)
[2023-01-22 05:03] LABS: Basophils % (auto) 0.4 % (0.0-2.0); Eosinophils % (auto) 0.4 % (0.0-7.0); Hematocrit 40.8 % (36.0-46.0); Hemoglobin 13.5 g/dL (12.2-16.2); Lymphocytes # (auto) 1.2 10 ^3/uL (0.4-5.4); Mean Corpuscular Hgb Conc. 33.1 g/dL (32.0-36.0); Monocytes # (auto) 0.9 10 ^3/uL (0-1.3); Monocytes % (auto) 6.8 % (0.0-12.0); Neutrophils # (auto) 10.9 10 ^3/uL (1.6-8.6); Neutrophils % (auto) 83.4 % (37.0-80.0); Red Blood Cells 5.04 10^6/uL (4.0-5.20); Red Cell Distribution Width 16.5 % (11.8-14.3); White Blood Cell 13.1 10^3/uL (4.4-10.8)
[2023-01-22 05:08] LABS: Albumin 2.9 g/dL (3.4-5.0); Calcium 7.8 mg/dL (8.5-10.1); Potassium 4.1 mmol/L (3.5-5.1)
[2023-01-22 05:12] LABS: BUN/Creatinine Ratio 26.1 (10.0-20.0); Bilirubin, Total 0.5 mg/dL (0.2-1.0); Total Protein 6.4 g/dL (6.4-8.2)
[2023-01-22] MEDS: ACCU-CHEK COMFORT CURVE STRIP VI SCH ×3 (07:00→22:00)
[2023-01-22] MEDS: InsuLIN REG 1unit/0.01ml Soln (100units/ml) SC SCH ×4 (08:51→22:00)
[2023-01-22] MEDS: CEFEPIME 1GM/ 50ML 50 ML IV SCH ×2 (13:45→21:29)
[2023-01-23] VITALS (9 sets, daily range): BP systolic 128–148; BP diastolic 52–76
[2023-01-23] MEDS: MORPHINE SULFATE INJ 2 MG/ml SYRG IV PRN ×5 (02:17→20:58)
[2023-01-23 05:17] LABS: Basophils # (auto) 0.1 10 ^3/uL (0-0.2); Basophils % (auto) 0.8 % (0.0-2.0); Eosinophils # (auto) 0.1 10 ^3/uL (0-0.8); Eosinophils % (auto) 1.7 % (0.0-7.0); Hematocrit 37.5 % (36.0-46.0); Hemoglobin 12.7 g/dL (12.2-16.2); Lymphocytes # (auto) 1.5 10 ^3/uL (0.4-5.4); Lymphocytes % (auto) 22.2 % (10.0-50.0); Mean Corpuscular Hemoglobin 27.2 pg (28.0-32.0); Mean Corpuscular Hgb Conc. 33.7 g/dL (32.0-36.0); Mean Corpuscular Volume 80.7 fL (80.0-100.0); Monocytes # (auto) 0.6 10 ^3/uL (0-1.3); Neutrophils # (auto) 4.6 10 ^3/uL (1.6-8.6); Neutrophils % (auto) 67.3 % (37.0-80.0); Nucleated Red Blood Cells % 0.1 %; Red Blood Cells 4.65 10^6/uL (4.0-5.20); Red Cell Distribution Width 16.8 % (11.8-14.3); White Blood Cell 6.9 10^3/uL (4.4-10.8)
[2023-01-23 05:34] LABS: BUN/Creatinine Ratio 21.3 (10.0-20.0); Calcium 8.1 mg/dL (8.5-10.1); Magnesium 2.3 mg/dL (1.6-2.6); Potassium 4.7 mmol/L (3.5-5.1)
[2023-01-23] MEDS: InsuLIN REG 1unit/0.01ml Soln (100units/ml) SC SCH ×4 (07:00→22:00)
[2023-01-23] MEDS: ACCU-CHEK COMFORT CURVE STRIP VI SCH ×4 (07:00→22:19)
[2023-01-23] MEDS: CEFEPIME 1GM/ 50ML 50 ML IV SCH ×4 (07:19→23:01)
[2023-01-23] MEDS: NOREPINEPHRINE 8 MG/250ML KIT 250 ML IV SCH (13:04)
[2023-01-23] MEDS: ATORVASTATIN 20 MG TAB PO SCH (22:13)
[2023-01-24] MEDS: MORPHINE SULFATE INJ 2 MG/ml SYRG IV PRN ×2 (00:50→05:51)
[2023-01-24 05:00] VITALS: BP 127/68
[2023-01-24 05:41] LABS: Basophils # (auto) 0 10 ^3/uL (0-0.2); Basophils % (auto) 0.5 % (0.0-2.0); Eosinophils # (auto) 0.1 10 ^3/uL (0-0.8); Eosinophils % (auto) 1.3 % (0.0-7.0); Hematocrit 39.9 % (36.0-46.0); Hemoglobin 13.5 g/dL (12.2-16.2); Lymphocytes # (auto) 1.3 10 ^3/uL (0.4-5.4); Lymphocytes % (auto) 21.8 % (10.0-50.0); Mean Corpuscular Hgb Conc. 33.8 g/dL (32.0-36.0); Mean Corpuscular Volume 80.1 fL (80.0-100.0); Monocytes # (auto) 0.4 10 ^3/uL (0-1.3); Monocytes % (auto) 6.3 % (0.0-12.0); Neutrophils # (auto) 4.2 10 ^3/uL (1.6-8.6); Neutrophils % (auto) 70.1 % (37.0-80.0); Nucleated Red Blood Cells % 0.2 %; Red Blood Cells 4.98 10^6/uL (4.0-5.20); Red Cell Distribution Width 16.7 % (11.8-14.3)
[2023-01-24] MEDS: CEFEPIME 1GM/ 50ML 50 ML IV SCH (05:43)
[2023-01-24] MEDS: InsuLIN REG 1unit/0.01ml Soln (100units/ml) SC SCH (05:51)
[2023-01-24] MEDS: ACCU-CHEK COMFORT CURVE STRIP VI SCH (05:52)
[2023-01-24 06:00] LABS: BUN/Creatinine Ratio 19.6 (10.0-20.0); Magnesium 2.1 mg/dL (1.6-2.6); Potassium 4.6 mmol/L (3.5-5.1)
[2023-01-24 07:31] VITALS: BP 128/62
[2023-01-24 10:48] LABS: Folate (Folic Acid) 8.96 ng/mL (5.38-24)
== END 2023-01-24 08:33 | DRG 871 ==
LOC: EDBD 08:52 → ER 08:52 → TELE 14:41 → TELE-WESTW 20:43 → DOU IN ICU 20:45 → ICU CENTRL 01-22 01:30 → TELE-WESTW 01-23 16:15
PROVIDERS: ADMIT Nurse Practitioner Family; ATTEND Internal Medicine
DX: A41.9 Sepsis, unspecified organism (principal); J15.9 Unspecified bacterial pneumonia; R65.21 Severe sepsis with septic shock; J96.20 Acute and chronic respiratory failure, unspecified whether with hypoxia or hypercapnia; E87.1 Hypo-osmolality and hyponatremia; E87.21 Acute metabolic acidosis; J44.0 Chronic obstructive pulmonary disease with (acute) lower respiratory infection; N17.9 Acute kidney failure, unspecified; N30.00 Acute cystitis without hematuria; I50.32 Chronic diastolic (congestive) heart failure; Z68.43 Body mass index [BMI] 50.0-59.9, adult; E11.9 Type 2 diabetes mellitus without complications; E78.5 Hyperlipidemia, unspecified; I11.0 Hypertensive heart disease with heart failure; I25.10 Atherosclerotic heart disease of native coronary artery without angina pectoris; E66.01 Morbid (severe) obesity due to excess calories; Z86.711 Personal history of pulmonary embolism; Z88.5 Allergy status to narcotic agent; Z91.048 Other nonmedicinal substance allergy status; Z82.49 Family history of ischemic heart disease and other diseases of the circulatory system; Z83.3 Family history of diabetes mellitus
CPT/HCPCS: 36415; 70450; 71045; 80048; 80053; 81001; 82306; 82570; 82607; 82746; 82962; 83605; 83735; 83880; 84300; 84443; 84484; 85025; 85610; 85730; 87040; 87081; 87086; 93005; 94640; 96361; 96365; 96367; 96368; 96375; 97110; 97116; 97163; 97530; G0378; J0696; J2405